=== PATIENT | male | born 1955 | race Caucasian/White ===

== ENCOUNTER 2023-11-02 15:53 | Inpatient (IN) | payer OTHER, BC ==
[~2023-11-02] VITALS: Ht 182.9 cm; Wt 103.4 kg
[2023-11-02 16:03] VITALS: BP 111/78; PULSE 118; RESP 18; TEMP 97.4; O2SAT 95
[2023-11-02 16:57] LABS: BASOPHILS % (AUTO) 0.7 % (0.0-2.0); EOSINOPHILS # (AUTO) 0.3 K/uL (0-0.4); EOSINOPHILS % (AUTO) 6.1 % (0.0-4.0); HEMATOCRIT 38.1 % (36-52); HEMOGLOBIN 12.7 g/dL (12.0-18.0); LYMPHOCYTES # (AUTO) 0.8 K/uL (2.0-11.5); LYMPHOCYTES % (AUTO) 14.9 % (20.5-51.1); MEAN CORPUSCULAR HEMOGLOBIN 27 pg (27-31); MEAN CORPUSCULAR HGB CONC 33 g/dL (33-37); MEAN CORPUSCULAR VOLUME 81.2 fL (80-94); MONOCYTES # (AUTO) 0.6 K/uL (0.8-1.0); MONOCYTES % (AUTO) 9.9 % (1.7-9.3); NEUTROPHILS # (AUTO) 3.9 K/uL (1.8-7.7); NEUTROPHILS % (AUTO) 68.4 % (42.2-75.2); PLATELET COUNT (AUTO) 290 K/uL (140-450); RED BLOOD CELL COUNT(AUTO) 4.69 MIL/uL (4.20-6.10); RED CELL DISTRIBUTION WIDTH 17.1 % (11.6-13.7); WHITE BLOOD COUNT (AUTO) 5.7 K/uL (4.8-10.8)
[2023-11-02 17:00] VITALS: O2SAT 95
[2023-11-02 17:09] LABS: ANION GAP 17.6 (8-16); CALCIUM 8.5 mg/dL (8.5-10.1); CARBON DIOXIDE 22.3 mmol/L (21-32); CREATININE 0.9 mg/dL (0.6-1.3); POTASSIUM 3.9 mmol/L (3.5-5.1)
[2023-11-02 17:11] LABS: INR 1.37 (0.8-1.2); PARTIAL THROMBOPLASTIN TIME 30.4 secs (22-35.6); PROTHROMBIN TIME 14.2 secs (10.8-13.4)
[2023-11-02 17:20] LABS: LACTIC ACID 1.3 mmol/L (0.4-2.0)
[2023-11-02] MEDS ORDERED: PIPERACILLIN/TAZOBACTAM 3.375 GM VIAL IV ONE (18:51)
[2023-11-02] MEDS: PIPERACILLIN/TAZOBACTAM 3.375 GM in DEXTROSE 5% 50 ML IV ONE (18:56)
[2023-11-02] MEDS ORDERED: VANCOMYCIN 1,000 MG VIAL ONE (19:41)
[2023-11-02 19:44] VITALS: O2SAT 97
[2023-11-02] MEDS: VANCOMYCIN 1,000 MG in DEXTROSE 5% 250 ML IV ONE (20:00)
[2023-11-02] MEDS ORDERED: ONDANSETRON 4 MG/2 ML VIAL IVP PRN (20:35)
[2023-11-02] MEDS: HYDROcodone/APAP 5/325 MG 1 TAB TAB PO PRN (21:39)
[2023-11-02] MEDS: NACL 0.9% 1,000 ML IV SCH (21:49)
[2023-11-02] MEDS ORDERED: VANCOMYCIN PER PHARMACY MC PRN (21:55)
[2023-11-02 22:30] VITALS: O2SAT 97
[2023-11-03] VITALS: BP 122/71; PULSE 87; RESP 20; TEMP 96.4
[2023-11-03] MEDS: ZOLPIDEM 5 MG TAB PO PRN (00:37)
[2023-11-03] MEDS: PIPERACILLIN/TAZOBACTAM 4.5 GM VIAL IV ONE ×2 (00:47→05:14)
[2023-11-03] MEDS: PIPERACILLIN/TAZOBACTAM 4.5 GM in DEXTROSE 5% 100 ML IV SCH (01:01)
[2023-11-03 04:00] VITALS: BP 110/62; PULSE 89; RESP 20; TEMP 96.7
[2023-11-03] MEDS: VANCOMYCIN 500 MG VIAL ONE (07:22)
[2023-11-03] MEDS: VANCOMYCIN HCL 1.25 GM in DEXTROSE 5% 250 ML IV SCH (07:22)
[2023-11-03] MEDS: VANCOMYCIN 1,000 MG VIAL ONE (07:22)
[2023-11-03 07:34] LABS: BASOPHILS % (AUTO) 1.1 % (0.0-2.0); EOSINOPHILS # (AUTO) 0.3 K/uL (0-0.4); EOSINOPHILS % (AUTO) 8.4 % (0.0-4.0); HEMATOCRIT 36.9 % (36-52); HEMOGLOBIN 12.1 g/dL (12.0-18.0); LYMPHOCYTES # (AUTO) 0.6 K/uL (2.0-11.5); LYMPHOCYTES % (AUTO) 16.1 % (20.5-51.1); MEAN CORPUSCULAR HEMOGLOBIN 27 pg (27-31); MEAN CORPUSCULAR HGB CONC 33 g/dL (33-37); MEAN CORPUSCULAR VOLUME 81.7 fL (80-94); MONOCYTES # (AUTO) 0.4 K/uL (0.8-1.0); MONOCYTES % (AUTO) 10.8 % (1.7-9.3); NEUTROPHILS # (AUTO) 2.4 K/uL (1.8-7.7); NEUTROPHILS % (AUTO) 63.6 % (42.2-75.2); PLATELET COUNT (AUTO) 253 K/uL (140-450); RED BLOOD CELL COUNT(AUTO) 4.51 MIL/uL (4.20-6.10); RED CELL DISTRIBUTION WIDTH 17.8 % (11.6-13.7); WHITE BLOOD COUNT (AUTO) 3.8 K/uL (4.8-10.8)
[2023-11-03 07:39] LABS: ALBUMIN 2.7 g/dL (3.4-5.0); CALCIUM 8.2 mg/dL (8.5-10.1); CARBON DIOXIDE 21.5 mmol/L (21-32); CREATININE 0.8 mg/dL (0.6-1.3); POTASSIUM 3.5 mmol/L (3.5-5.1)
[2023-11-03] MEDS: PANTOPRAZOLE 40 MG INJ VIAL IVP SCH (08:43)
[2023-11-03] MEDS: DOCUSATE SODIUM 100 MG GELCAP PO SCH (08:43)
[2023-11-03 08:46] VITALS: BP 118/57; PULSE 111; RESP 18; TEMP 97.4; O2SAT 98
[2023-11-03 09:06] VITALS: PULSE 111; RESP 18; O2SAT 98
[2023-11-03 16:12] VITALS: BP 93/70; PULSE 91; RESP 18; TEMP 97.9; O2SAT 94
[2023-11-03 20:00] VITALS: BP 93/54; PULSE 98; RESP 18; TEMP 97.3; O2SAT 95
[2023-11-03] MEDS: VANCOMYCIN 1,500 MG in DEXTROSE 5% 500 ML IV SCH (20:26)
[2023-11-03] MEDS: GABAPENTIN 300 MG CAP PO ONE (20:38)
[2023-11-04 04:00] VITALS: BP 120/86; PULSE 98; RESP 20; TEMP 97.5; O2SAT 98
[2023-11-04 06:52] LABS: BASOPHILS # (AUTO) 0.1 K/uL (0.00-0.22); BASOPHILS % (AUTO) 1.6 % (0.0-2.0); EOSINOPHILS # (AUTO) 0.3 K/uL (0-0.4); HEMATOCRIT 37.4 % (36-52); HEMOGLOBIN 12.4 g/dL (12.0-18.0); LYMPHOCYTES # (AUTO) 0.7 K/uL (2.0-11.5); MEAN CORPUSCULAR HEMOGLOBIN 27 pg (27-31); MEAN CORPUSCULAR HGB CONC 33 g/dL (33-37); MEAN CORPUSCULAR VOLUME 81.3 fL (80-94); MONOCYTES # (AUTO) 0.5 K/uL (0.8-1.0); MONOCYTES % (AUTO) 11.3 % (1.7-9.3); NEUTROPHILS # (AUTO) 2.5 K/uL (1.8-7.7); NEUTROPHILS % (AUTO) 62.1 % (42.2-75.2); PLATELET COUNT (AUTO) 246 K/uL (140-450); RED CELL DISTRIBUTION WIDTH 17.7 % (11.6-13.7); WHITE BLOOD COUNT (AUTO) 4.1 K/uL (4.8-10.8)
[2023-11-04 08:00] VITALS: BP 121/85; PULSE 90; RESP 17; RESP 18; TEMP 97.6; O2SAT 96; O2SAT 99
[2023-11-04] MEDS ORDERED: fentaNYL citrate 0.05 MG/ML VIAL ONE (08:09)
[2023-11-04] MEDS ORDERED: DEXAMETHASONE 4 MG/ML VIAL ONE (08:09)
[2023-11-04] MEDS ORDERED: SEVOFLURANE 250 ML BTL INH ONE (08:09)
[2023-11-04] MEDS ORDERED: MIDAZOLAM 2 MG/2 ML VIAL ONE (08:09)
[2023-11-04] MEDS ORDERED: PROPOFOL 200 MG/20 ML VIAL IV ONE (08:09)
[2023-11-04] MEDS ORDERED: KETOROLAC 60 MG/2 ML VIAL IM ONE (08:09)
[2023-11-04] MEDS ORDERED: ONDANSETRON 4 MG/2 ML VIAL ONE (08:09)
[2023-11-04] MEDS ORDERED: METOCLOPRAMIDE 10 MG/2 ML INJ VIAL ONE (08:09)
[2023-11-04 08:37] LABS: ALBUMIN 2.7 g/dL (3.4-5.0); ANION GAP 13.9 (8-16); CALCIUM 8.3 mg/dL (8.5-10.1); CARBON DIOXIDE 22.9 mmol/L (21-32); CREATININE 0.9 mg/dL (0.6-1.3); POTASSIUM 3.8 mmol/L (3.5-5.1); TOTAL BILIRUBIN 0.8 mg/dL (0.0-1.0); TOTAL PROTEIN, SERUM 7.2 g/dL (6.4-8.2)
[2023-11-04] MEDS: FUROSEMIDE 20 MG/2 ML VIAL IVP SCH (09:00)
[2023-11-04] MEDS: BUPIVACAINE-MPF 0.25% 30 ML VIAL INJ ONE (09:12)
[2023-11-04] MEDS: HYDROGEN PEROXIDE 3% 240 ML BTL TP ONE (09:22)
[2023-11-04] MEDS ORDERED: ONDANSETRON 4 MG/2 ML VIAL IVP PRN (10:45)
[2023-11-04 12:00] VITALS: BP 110/87; PULSE 76; RESP 18; TEMP 98; O2SAT 97
[2023-11-04 16:00] VITALS: BP 103/76; PULSE 82; RESP 18; TEMP 97.9; O2SAT 95
[2023-11-04 20:00] VITALS: BP 95/71; PULSE 99; RESP 18; TEMP 97.4; O2SAT 94
[2023-11-04] MEDS ORDERED: MORPHINE SULFATE 2 MG/ML SYR IVP PRN (20:35)
[2023-11-04] MEDS: VANCOMYCIN 1,500 MG in DEXTROSE 5% 500 ML IV SCH (23:30)
[2023-11-05 04:00] VITALS: BP 102/72; PULSE 67; RESP 18; TEMP 97.3; O2SAT 96
[2023-11-05 07:04] LABS: BASOPHILS % (AUTO) 0.1 % (0.0-2.0); HEMATOCRIT 38.2 % (36-52); HEMOGLOBIN 12.5 g/dL (12.0-18.0); LYMPHOCYTES # (AUTO) 0.4 K/uL (2.0-11.5); LYMPHOCYTES % (AUTO) 6.7 % (20.5-51.1); MEAN CORPUSCULAR HEMOGLOBIN 27 pg (27-31); MEAN CORPUSCULAR HGB CONC 33 g/dL (33-37); MEAN CORPUSCULAR VOLUME 81.7 fL (80-94); MONOCYTES # (AUTO) 0.5 K/uL (0.8-1.0); MONOCYTES % (AUTO) 8.5 % (1.7-9.3); NEUTROPHILS # (AUTO) 4.9 K/uL (1.8-7.7); NEUTROPHILS % (AUTO) 84.7 % (42.2-75.2); PLATELET COUNT (AUTO) 231 K/uL (140-450); RED BLOOD CELL COUNT(AUTO) 4.67 MIL/uL (4.20-6.10); RED CELL DISTRIBUTION WIDTH 17.9 % (11.6-13.7); WHITE BLOOD COUNT (AUTO) 5.8 K/uL (4.8-10.8)
[2023-11-05 07:25] LABS: ALBUMIN 2.9 g/dL (3.4-5.0); CALCIUM 8.7 mg/dL (8.5-10.1); CREATININE 1.2 mg/dL (0.6-1.3); TOTAL BILIRUBIN 0.9 mg/dL (0.0-1.0); TOTAL PROTEIN, SERUM 7.5 g/dL (6.4-8.2)
[2023-11-05 08:00] VITALS: BP 97/70; PULSE 94; PULSE 97; RESP 19; TEMP 97.8; O2SAT 97
[2023-11-05] MEDS ORDERED: INSULIN LISPRO SLIDING SCALE 100 UNITS/ML VIAL SUBQ PRN (09:00)
[2023-11-05] MEDS ORDERED: DEXTROSE 50% 50 ML SYR IVP PRN (09:00)
[2023-11-05] MEDS: BLOOD GLUCOSE MONITORING 1 DEV DEV FS SCH (12:15)
[2023-11-05] MEDS ORDERED: AMOX-999 PO (16:12)
[2023-11-05] MEDS ORDERED: METF-1139 PO (16:12)
== END 2023-11-05 16:40 | disposition home or self-care (01) | DRG 629 ==
LOC: MED 15:53 → MMU 20:34 → MTU 20:38
PROVIDERS: ADMIT Student in an Organized Health Care Education/Training Program; ATTEND Student in an Organized Health Care Education/Training Program
PROC: 0QBM0ZZ Excision of Left Tarsal, Open Approach (ICD-10-PCS; 2023-11-04)
PROC: 0QSM05Z Reposition Left Tarsal with External Fixation Device, Open Approach (ICD-10-PCS; principal; 2023-11-04 08:00)
DX: E11.621 Type 2 diabetes mellitus with foot ulcer (principal); E44.1 Mild protein-calorie malnutrition; L03.116 Cellulitis of left lower limb; M86.8X7 Other osteomyelitis, ankle and foot; L97.426 Non-pressure chronic ulcer of left heel and midfoot with bone involvement without evidence of necrosis; M84.475A Pathological fracture, left foot, initial encounter for fracture; E11.69 Type 2 diabetes mellitus with other specified complication; E11.610 Type 2 diabetes mellitus with diabetic neuropathic arthropathy; Z79.899 Other long term (current) drug therapy; Z68.30 Body mass index [BMI] 30.0-30.9, adult
CPT/HCPCS: 36415; 71045; 73620; 73630; 80048; 80053; 80202; 82948; 83036; 83605; 85025; 85610; 85651; 85730; 86140; 87040; 87070; 87075; 87081; 87205; 88304; 93005; 96365; 96375; 99285; C1713; C9113; J1100; J1815; J1885; J1940; J2250; J2405; J2543; J2704; J2765; J3010; J3370; J3490; J7030; J7060; Q0092